=== PATIENT | female | born 1970 | race African-American/Black ===

== ENCOUNTER 2017-01-21 12:51 | Emergency (ER) | payer OTHER ==
[~2017-01-21 12:51] MED LIST: AMOXICILLIN875 MG PO; FLAGYL250 M1 PO; FLEXERIL PO; FLEXERIL10 MG PO; HCTZ; IBUPROFEN800 MG PO; KETOPROFEN PO; LISINOPRIL PO; METFORMIN; NAPROXEN500 M1 PO; TYLENOL #3 PO; VICODIN 5/1 TAB 5/50 PO
== END 2017-01-21 13:26 | disposition home or self-care (01) ==
LOC: CED 12:51
DX: T40.1X1A Poisoning by heroin, accidental (unintentional), initial encounter (principal); F17.200 Nicotine dependence, unspecified, uncomplicated
CPT/HCPCS: 99283

== ENCOUNTER 2017-02-13 20:47 | Emergency (ER) | payer OTHER | END 2017-02-13 21:00 | disposition left against medical advice (07) | LOC: CED 20:47 | DX: Z53.21 Procedure and treatment not carried out due to patient leaving prior to being seen by health care provider (principal) ==